=== PATIENT | female | born 1975 | race Caucasian/White ===

== ENCOUNTER → 2018-05-01 07:45 | Outpatient (CLI) | payer OTHER, SELFPAY ==
[2018-05-01 08:19] LABS: Add Manual Diff / Slide Review NO; Basophils Absolute Auto 0 /uL (0-100); Basophils Percent Auto 0.6 % (0-2); Eosinophils Absolute Auto 100 /uL (0-450); Eosinophils Percent Auto 1.6 % (2-4); Hematocrit 39.3 % (36-46); Hemoglobin 13.1 g/dL (12.0-16.0); Lymphocytes Absolute Auto 1900 /uL (1100-4500); Lymphocytes Percent Auto 26.2 % (25-40); Mean Corpuscular HGB Conc 33.4 % (30-36); Mean Corpuscular Hemoglobin 30.5 PG (26-34); Mean Corpuscular Volume 91.5 fL (80-100); Monocytes Absolute Auto 500 /uL (0-900); Monocytes Percent Auto 7.5 % (3-14); Neutrophils Absolute Auto 4600 /uL (1500-7000); Neutrophils Percent Auto 64.1 % (50-75); Platelet Count 231 X10^3/uL (150-400); Red Cell Distribution Width 13.2 % (11.6-14.8); White Blood Cell Count 7.2 X10^3/uL (4.5-11.0)
[2018-05-01 08:56] LABS: Cholesterol 148 mg/dL (140-199); Glucose 94 mg/dL (70-100); HDL Cholesterol 65 mg/dL (40-60); LDL Cholesterol Calculated 59 mg/dL (<100); Triglycerides 121 mg/dL (35-150)
[2018-05-01 09:22] LABS: Thyroid Stimulating Hormone 2.44 uIU/mL (0.47-4.68)
== END ==
PROVIDERS: PCP Family Medicine; Visit Provider Family Medicine
DX: Z13.0 Encounter for screening for diseases of the blood and blood-forming organs and certain disorders involving the immune mechanism (principal); Z13.1 Encounter for screening for diabetes mellitus; Z13.220 Encounter for screening for lipoid disorders
CPT/HCPCS: 36415; 80061; 82947; 84443; 85025

== ENCOUNTER → 2019-02-11 16:54 | Outpatient (CLI) | payer OTHER, SELFPAY ==
--- NOTE | 2019-02-11 16:55 | DI.MG.S_ITS ---
BILATERAL DIGITAL SCREENING MAMMOGRAM 3D/2D WITH CAD: 02/11/2019 CLINICAL: Routine screening. Baseline exam. Family history of breast cancer. No prior exams were available for comparison. The tissue of both breasts is extremely dense, which lowers the sensitivity of mammography. Current study was also evaluated with a Computer Aided Detection (CAD) system. No significant masses, calcifications, or other findings are seen in either breast. IMPRESSION: NEGATIVE There is no mammographic evidence of malignancy. A 1 year screening mammogram is recommended. This exam was interpreted at Station ID: [id number]. NOTE: For mammograms, a report in lay terms will be sent to the patient. Approximately 15% of breast malignancies will not be visualized mammographically. In the management of a palpable breast mass, a negative mammogram must not discourage biopsy of a clinically suspicious lesion. Electronically Signed By: Vipul gonzales/mark:02/12/2019 07:45:51 letter sent: Normal Exam ACR BI-RADS Category 1: Negative [id number]
== END ==
PROVIDERS: PCP Family Medicine; Visit Provider Family Medicine
DX: Z12.31 Encounter for screening mammogram for malignant neoplasm of breast (principal); Z80.3 Family history of malignant neoplasm of breast
CPT/HCPCS: 77063; 77067

== ENCOUNTER → 2020-09-07 07:13 | Outpatient (CLI) | payer OTHER, SELFPAY ==
--- NOTE | 2020-09-07 07:14 | DI.US.S_ITS ---
PROCEDURE: US PELVIC COMPLETE INDICATIONS: RIGHT ADNEXAL CYST ON MRI TECHNIQUE: Real-time scanning was performed of the pelvic organs, with image documentation. Additional endovaginal scanning was necessary due to incomplete visualization of the adnexal and endometrial structures by transabdominal scanning. COMPARISON: [facility], MR, MR HIP RIGHT WITHOUT CONTRAST, 05/20/2020, 7:31. FINDINGS: Uterus: Uterus is normal in size at 6.5 x 3.0 x 4.3 cm. The endometrium measures 1.3 mm in combined thickness. Ovaries: The right ovary measures 6.8 x 4.7 x 5.3 cm and contains a large simple cyst measuring 6.4 x 4.5 x 5.2 cm. The left ovary measures 2.6 x 2.6 x 2.7 cm and contains 2 small simple cysts, the larger of which measures 1.5 x 1.6 x 1.5 cm. Other: No pathologic free abdominal or pelvic fluid. IMPRESSION: 1. Simple right ovarian cyst measures up to 6.4 cm in maximum dimension. Given the size of the cyst, annual sonographic follow-up is recommended based on U guidelines. 2. Two simple left ovarian cysts are also seen measuring up to 1.6 cm in diameter. Attention at these cysts is also recommended on follow-up exams. Dictated by: Greg Abrams M.D. on 09/08/2020 at 16:22 Approved by: Greg Abrams M.D. on 09/08/2020 at 16:27
== END ==
PROVIDERS: PCP Family Medicine; Referring Provider Family Medicine; Visit Provider Family Medicine
DX: N83.291 Other ovarian cyst, right side (principal); N83.292 Other ovarian cyst, left side
CPT/HCPCS: 76830; 76856

== ENCOUNTER 2020-11-18 12:21 | Emergency (ER) | payer OTHER, SELFPAY ==
[2020-11-18 12:42] VITALS: BP 147/71; PULSE 94; RESP 15; TEMP 36.9; O2SAT 98; BMI 23.6
--- NOTE | 2020-11-18 12:48 | DI.RAD.S_ITS ---
PROCEDURE: XR HIP W PEL IF DONE RT 2V INDICATIONS: right hip pain TECHNIQUE: AP pelvis with lateral view of the right hip. COMPARISON: [facility], MR, MR HIP RIGHT WITHOUT CONTRAST, 05/20/2020, 7:31. [facility] [place], CR, XR PELVIS WITH LATERAL HIP RIGHT, 02/02/2020, 16:08. FINDINGS: Bones: No acute fractures or dislocations. Pelvic ring appears intact. No suspicious bony lesions. Soft tissues: The visualized bowel gas pattern is normal. No suspicious soft tissue calcifications. IMPRESSION: No acute osseous abnormality. If clinical suspicion and/or symptoms persist, additional imaging with repeat plain films, or advanced imaging (e.g. CT, MRI) may be helpful for further assessment. Dictated by: Greg Abrams M.D. on 11/18/2020 at 13:07 Approved by: Greg Abrams M.D. on 11/18/2020 at 13:09
--- NOTE | 2020-11-18 15:01 | ED.EXTPRO ---
HPI - Extremity Problem <Josue Vegas PA-C - Last Filed: 11/18/20 18:44> General Chief complaint: Extremity Problem,Nontraumatic Stated complaint: Pain, Right Side, Hip into Leg, Hx Bursitis Time Seen by Provider: 11/18/20 13:42 Source: patient Mode of arrival: Ambulatory Limitations: no limitations History of Present Illness HPI Narrative: Bekah presents today with chief complaint of right sided low back pain that is radiating down her right leg. She reports that she was moving some firewood on Sunday and noticed a bit of tightness in her right lower back on Sunday which has progressed throughout this week. She has known history of bursitis in her right hip. She reports that she has been chronic pain for nearly a year but this seems to be a bit worse than normal. She has an appointment with her PCP tomorrow morning at 1000. She denies any significant changes in bowel or bladder habits, difficulty walking, abdominal pain, fever, headache, or any other acute concerns or complaints at this time. Related Data Previous Rx's Medication Instructions Recorded hydrocodone 5 mg-acetaminophen 325 1 tab PO TID PRN #30 tab 12/30/19 mg tablet meloxicam 15 mg tablet 15 mg PO DAILY #30 tab 12/30/19 gabapentin 300 mg capsule See Rx Instructions PO TID #180 cap 05/11/20 norethindrone 1 mg-ethinyl See Rx Instructions .ROUTE 10/25/20 estradiol 20 mcg (24)-iron 75 mg .COMPLEX #84 tab (4) tablet (Aurovela 24 Fe) methocarbamol 500 mg tablet 500 mg PO BID #10 tab 11/18/20 ketorolac 10 mg tablet 10 mg PO Q6H PRN #14 tab 11/19/20 methylprednisolone 4 mg tablets in See Rx Instructions .ROUTE 11/19/20 a dose pack (Medrol (Kenny)) .COMPLEX #21 ea Allergies Allergy/AdvReac Type Severity Reaction Status Date / Time No Known Drug Allergies Allergy Verified 11/18/20 12:44 Review of Systems <Josue Vegas PA-C - Last Filed: 11/18/20 18:44> Review of Systems Narrative: As per HPI Patient History <Josue Vegas PA-C - Last Filed: 11/18/20 18:44> Surgical History Status post appendectomy Family History Mother Diabetes mellitus Heart disease Social History Smoking Status: Never smoker Smoking Status: Never smoker alcohol intake frequency: a few times a month Substance Use Type: does not use Exam <Josue Vegas PA-C - Last Filed: 11/18/20 18:44> Narrative Exam Narrative: Exam Narrative: Const General: cooperative, healthy appearing, comfortable, no acute distress, well developed and well groomed Nutritional Appearance: average body habitus Orientation: alert and oriented x3 HENMT Head: normal to inspection and atraumatic Ears: hearing grossly normal bilaterally Nose: external nose normal and nares normal Face and sinus: normal facial exam Neck Neck: normal visual inspection and supple Resp Effort & Inspection: normal respiratory effort, able to speak in complete sentences, no audible wheezes, not labored, no nasal flaring and no respiratory distress Neuro General: alert, oriented x3, gait normal, tone normal and moves all extremities Cognition: normal cognition Speech: speech normal Gait: normal gait Musculoskeletal No midline spinal tenderness noted. Full range of motion of her leg. Positive straight leg raise on the right. no overlying skin changes. Soft tissue tenderness in right lower lumbar area. No SI joint tenderness. Psych Appearance: grossly normal and well kempt Mental Status: mental status grossly normal Speech and Movement: speech and movement normal Mood: congruent mood Affect: normal affect Initial Vital Signs Initial Vital Signs: Vital Signs Temperature 98.5 F 11/18/20 12:42 Pulse Rate 94 H 11/18/20 12:42 Respiratory Rate 15 11/18/20 12:42 Blood Pressure 147/71 H 11/18/20 12:42 Pulse Oximetry 98 11/18/20 12:42 <Pura Mosley DO - Last Filed: 11/19/20 09:13> Initial Vital Signs Initial Vital Signs: Vital Signs Temperature 98.5 F 11/18/20 12:42 Pulse Rate 94 H 11/18/20 12:42 Respiratory Rate 15 11/18/20 12:42 Blood Pressure 147/71 H 11/18/20 12:42 Pulse Oximetry 98 11/18/20 12:42 Course <Josue Vegas PA-C - Last Filed: 11/18/20 18:44> Orders Ordered: Discontinued Medications Ketorolac Tromethamine (Ketorolac 30 Mg/Ml Vial) 30 mg IM NOW ONE Stop: 11/18/20 14:56 Last Admin: 11/18/20 15:06 Dose: 30 mg Documented by: WILLIE Vital Signs Vital signs: Vital Signs - 8 hr 11/18/20 12:42 Temperature 98.5 F Pulse Rate 94 H Respiratory Rate 15 Blood Pressure 147/71 H Pulse Oximetry 98 <Pura Mosley DO - Last Filed: 11/19/20 09:13> Orders Ordered: Discontinued Medications Ketorolac Tromethamine (Ketorolac 30 Mg/Ml Vial) 30 mg IM NOW ONE Stop: 11/18/20 14:56 Last Admin: 11/18/20 15:06 Dose: 30 mg Documented by: WILLIE Vital Signs Vital signs: Vital Signs - 8 hr 11/18/20 12:42 Temperature 98.5 F Pulse Rate 94 H Respiratory Rate 15 Blood Pressure 147/71 H Pulse Oximetry 98 MDM - Extremity (Nontraumatic) <Josue Vegas PA-C - Last Filed: 11/18/20 18:44> MDM Narrative Medical decision making narrative: Patient is well-appearing at this time. I suspect that her symptoms are due to a muscle strain which is compressing on her sciatic nerve. Recommend anti-inflammatories, muscle relaxers, stretching, warm compresses to help with symptoms. If symptoms continue, she could benefit from a physical therapy evaluation. I will defer this to her PCP. ER return precautions were extensively discussed. Patient verbalizes understanding and agrees to plan and has no further concerns at this time. Thank you A [id number] system was used with the dictation of this note. Please disregard any spelling or grammatical errors. Discharge Plan Departure Patient Disposition: Home Clinical Impression: Acute right-sided low back pain with sciatica Qualifiers: Sciatica laterality: sciatica of right side Qualified Code(s): M54.41 - Lumbago with sciatica, right side Instructions: DI for Back Pain With Sciatica Activity Restrictions/Additional Instructions: It was nice to me this afternoon. Please stretch your low back and hip to help symptoms. Recommend applying warm compresses to loosen the muscles. Use the muscle relaxer as needed to help with pain as discussed. Please do not operate motor vehicle or any other machinery while on this medication. Return precautions include fever, changes in bowel or bladder habits, or any other new or worsening symptoms. Thank you Josue Vegas PA-C Prescriptions: New methocarbamol 500 mg tablet 500 mg PO BID Qty: 10 RF: 0 No Action hydrocodone-acetaminophen 5-325 mg tablet 1 tab PO TID PRN (Reason: pain) Qty: 30 RF: 0 meloxicam 15 mg tablet 15 mg PO DAILY Qty: 30 RF: 2 gabapentin 300 mg capsule See Rx Instructions PO TID Qty: 180 RF: 3 norethindrone-e.estradiol-iron [Aurovela 24 Fe] 1 mg-20 mcg (24)/75 mg (4) tablet See Rx Instructions .ROUTE .COMPLEX Qty: 84 RF: 0 methylprednisolone [Medrol (Kenny)] 4 mg tablets,dose pack See Rx Instructions .ROUTE .COMPLEX Qty: 21 RF: 0 ketorolac 10 mg tablet 10 mg PO Q6H PRN (Reason: pain) Qty: 14 RF: 0 Referrals: Tomasa Frazier MD [Primary Care Provider] - <Pura Mosley DO - Last Filed: 11/19/20 09:13> Cosign ED Attending [employer]ain[employer] Attestation: I was immediately available in the department for consultation. Documentation has been reviewed.
[2020-11-18] MEDS: KETOROLAC 30 MG/ML VIAL IM (15:06)
== END 2020-11-18 15:30 | disposition home or self-care (01) ==
PROVIDERS: Emergency Provider Physician Assistant; PCP Family Medicine
DX: M54.41 Lumbago with sciatica, right side (principal)
CPT/HCPCS: 73502; J1885

== ENCOUNTER 2020-11-18 23:12 | Emergency (ER) | payer OTHER, SELFPAY ==
--- NOTE | 2020-11-18 23:14 | ED_ITS ---
HPI - Extremity Problem General Chief complaint: Back Pain/Injury Stated complaint: heavy pain in right hip/leg Time Seen by Provider: 11/18/20 23:13 History of Present Illness HPI Narrative: 44-year-old female nonsmoker with history of low back problems, previously requiring surgery returns for the 2nd time today. She developed significant low back pain with radiation down her right leg after lifting logs a few days ago. Her pain is severe and in the lumbar region with radiation down her right leg and some tingling is present. She denies any weakness or footdrop. She has no direct trauma, fever or use of blood thinners. She denies any loss of control of bowel or bladder. Her pain is worse when she moves and improves with rest. She was seen and evaluated earlier, thought to have radicular symptoms and was placed on methocarbamol which has not seemed to help much. She has had sciatica and lumbar problems in the past which required neuro surgical intervention up in [place]. Related Data Previous Rx's Medication Instructions Recorded hydrocodone 5 mg-acetaminophen 325 1 tab PO TID PRN #30 tab 12/30/19 mg tablet meloxicam 15 mg tablet 15 mg PO DAILY #30 tab 12/30/19 gabapentin 300 mg capsule See Rx Instructions PO TID #180 cap 05/11/20 norethindrone 1 mg-ethinyl See Rx Instructions .ROUTE 10/25/20 estradiol 20 mcg (24)-iron 75 mg .COMPLEX #84 tab (4) tablet (Aurovela 24 Fe) methocarbamol 500 mg tablet 500 mg PO BID #10 tab 11/18/20 ketorolac 10 mg tablet 10 mg PO Q6H PRN #14 tab 11/19/20 methylprednisolone 4 mg tablets in See Rx Instructions .ROUTE 11/19/20 a dose pack (Medrol (Kenny)) .COMPLEX #21 ea Allergies Allergy/AdvReac Type Severity Reaction Status Date / Time No Known Drug Allergies Allergy Verified 11/18/20 12:44 Review of Systems Review of Systems Narrative: GENERAL: Denies chills, fatigue, malaise, fever, sweats. HEENT: Denies sinus pain, ear pain, sore throat, difficulty swallowing, dizziness. RESPIRATORY: Denies dyspnea, cough, wheezing, hemoptysis, sputum. CARDIOVASCULAR: Denies chest pain, palpitations, orthopnea, edema, GASTROINTESTINAL: Denies nausea, vomiting, abdominal pain, diarrhea, constipation, melena. : Denies dysuria, frequency, incontinence, hematuria, urinary retention. MUSCULOSKELETAL: See HPI SKIN: Denies rash, skin lesions, or other NEUROLOGIC: See HPI. PSYCHIATRIC: No concerning psychosocial issues. 12 point review of systems is negative except for those stated above Patient History Surgical History Status post appendectomy Family History Mother Diabetes mellitus Heart disease Social History Smoking Status: Never smoker Smoking Status: Never smoker alcohol intake frequency: a few times a month Substance Use Type: does not use Exam Narrative Exam Narrative: GENERAL: [44] year old patient appears stated age. Well- developed patient, in obvious pain, bent over on the cart, tearful HEAD: Atraumatic. Normocephalic. EYES: Pupils equal round and reactive. Extraocular motions intact. No scleral icterus. No injection or drainage. ENT: Nose without bleeding, purulent drainage. Throat without erythema, tonsillar hypertrophy or exudate. Airway patent. NECK: Trachea midline. Non tender CARDIOVASCULAR: Regular rate and rhythm without murmurs, gallops, or rubs. RESPIRATORY: Clear to auscultation. Breath sounds equal bilaterally. No wheezes, rales, or rhonchi. GASTROINTESTINAL: Abdomen soft, non-tender, nondistended. EXTREMITIES: No edema or joint tenderness. 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 Patient exam notes decreased range of motion and muscle spasm, but no CVA tenderness, or vertebral point tenderness. There are no symptoms of cauda equina such as saddle anesthesia, and decreased reflexes, decreased sensation or strength. NEURO: AOx3. SKIN: No rash or erythema of visible areas Initial Vital Signs Initial Vital Signs: Vital Signs Temperature 97.5 F L 11/18/20 23:25 Pulse Rate 65 11/18/20 23:25 Respiratory Rate 22 11/18/20 23:25 Blood Pressure 137/67 11/18/20 23:25 Pulse Oximetry 100 11/18/20 23:25 Course Orders Ordered: Discontinued Medications Gabapentin (Gabapentin 300 Mg Capsule) 300 mg PO NOW ONE Stop: 11/18/20 23:34 Last Admin: 11/18/20 23:56 Dose: 300 mg Documented by: EMILIANO Hydromorphone HCl (Hydromorphone 1 Mg Inj) 1 mg IV NOW ONE Stop: 11/18/20 23:31 Last Admin: 11/18/20 23:56 Dose: 1 mg Documented by: EMILIANO Dexamethasone 20 mg/ Sodium (Chloride) 52 mls @ 208 mls/hr IV NOW ONE Stop: 11/18/20 23:31 Last Admin: 11/18/20 23:56 Dose: 208 mls/hr Documented by: EMILIANO Ketorolac Tromethamine (Ketorolac 30 Mg/Ml Vial) 15 mg IV NOW ONE Stop: 11/18/20 23:31 Last Admin: 11/18/20 23:55 Dose: 15 mg Documented by: EMILIANO Reevaluation(s) Reevaluation #1: Significant improvement after the above-stated therapies, pain down to a 4 of 10 Vital Signs Vital signs: Vital Signs - 8 hr 11/18/20 23:25 11/19/20 00:42 Temperature 97.5 F L Pulse Rate 65 58 L Respiratory Rate 22 15 Blood Pressure 137/67 120/62 Pulse Oximetry 100 99 MDM - Extremity (Nontraumatic) MDM Narrative Medical decision making narrative: Patient with severe, worsening right lower back pain with radiation down the right leg including some tingling but absence of any significant red flags suggesting an neuro surgical emergencies present. Multiple etiologies of back pain considered including; Epidural abscess, cauda equina, mass occupying lesion, and other considered but patient's history, physical exam and response to medications would suggest this is unlikely. Patient given return precautions, questions answered to her apparent satisfacti on Discharge Plan Departure Patient Disposition: Home Clinical Impression: Acute right lumbar radiculopathy Instructions: DI for Lumbar Radiculopathy Activity Restrictions/Additional Instructions: *You have been diagnosed with [acute right-sided lumbar pain with radiculopathy. Your physical exam and story are very reassuring and that there is no suggestion of spinal cord involvement or other neuro surgical emergency. *What to do: *Please continue to take your regular medications as directed including the percocet and gabapentin which you have at home. [x ] New medication prescriptions sent to your pharmacy: [[facility] ] [ ] New medication written as a paper prescription [ ] No new medications given *Please follow up with your primary care provider later today as planned *Return to Emergency Department if you should have any new, worsening or concerning symptoms, such as [fever greater than 101 F, shaking chills, worsening pain, persistent vomiting, weakness of your leg, loss of control of bowel or bladder, or other bothersome symptoms] Prescriptions: New methylprednisolone [Medrol (Kenny)] 4 mg tablets,dose pack See Rx Instructions .ROUTE .COMPLEX Qty: 21 RF: 0 ketorolac 10 mg tablet 10 mg PO Q6H PRN (Reason: pain) Qty: 14 RF: 0 No Action hydrocodone-acetaminophen 5-325 mg tablet 1 tab PO TID PRN (Reason: pain) Qty: 30 RF: 0 meloxicam 15 mg tablet 15 mg PO DAILY Qty: 30 RF: 2 gabapentin 300 mg capsule See Rx Instructions PO TID Qty: 180 RF: 3 norethindrone-e.estradiol-iron [Aurovela 24 Fe] 1 mg-20 mcg (24)/75 mg (4) tablet See Rx Instructions .ROUTE .COMPLEX Qty: 84 RF: 0 methocarbamol 500 mg tablet 500 mg PO BID Qty: 10 RF: 0 Referrals: Tomasa Frazier MD [Primary Care Provider] -
[2020-11-18 23:25] VITALS: BP 137/67; PULSE 65; RESP 22; TEMP 36.4; O2SAT 100; BMI 23.8
[2020-11-18] MEDS: KETOROLAC 30 MG/ML VIAL 15 MG IV (23:55)
[2020-11-18] MEDS: dexAMETHasone 20 MG in SODIUM CHLORIDE 0.9% 50 ML 208 ML IV (23:56)
[2020-11-18] MEDS: HYDROMORPHONE 1 MG INJ IV (23:56)
[2020-11-18] MEDS: GABAPENTIN 300 MG CAPSULE PO (23:56)
[2020-11-19 00:42] VITALS: BP 120/62; PULSE 58; RESP 15; O2SAT 99
== END 2020-11-19 00:43 | disposition home or self-care (01) ==
PROVIDERS: Emergency Provider Emergency Medicine; PCP Family Medicine
DX: M54.16 Radiculopathy, lumbar region (principal); M54.41 Lumbago with sciatica, right side
CPT/HCPCS: 73502; 96365; 96372; 96375; 99283; 99284; J1100; J1170; J1885

== ENCOUNTER → 2020-12-06 17:20 | Outpatient (CLI) | payer OTHER, SELFPAY ==
--- NOTE | 2020-12-06 17:24 | DI.MRI.S_ITS ---
PROCEDURE: MR LUMBAR SPINE WO CON INDICATIONS: lower back pain with radiculoathy TECHNIQUE: Noncontrast sagittal T1 spin echo and T2 fast echo, sagittal STIR, axial T1 and T2 fast spin echo through the lumbar spine. In cases with scoliosis, additional coronal T2 fast spin echo may be performed. COMPARISON: [facility], MR, MR LUMBAR SPINE WITHOUT CONTRAST, 05/20/2020, 7:31. [facility] [place], CR, XR LUMBAR SPINE 2 OR 3 VIEWS, 02/02/2020, 16:05. FINDINGS: Image quality: Excellent. Alignment and Curvature: 5 lumbar type vertebral bodies are present by plain film. Loss of normal lumbar lordosis is present. Mild grade 1 retrolisthesis of L3 on L4, L4 on L5, and L5 on S1. Bone Marrow: Marrow is of normal overall signal. No acute vertebral body compression fractures. Right L5-S1 hemilaminotomy. Mild reactive signal within the endplates adjacent to the L4-L5 and L5-S1 intervertebral discs. Spinal Cord: Conus medullaris terminates at the lower L1 level. Visualized cord demonstrates normal signal and size. Paraspinous Soft Tissues: No paravertebral masses. T12-L1: Normal appearance. L1-L2: Normal appearance. L2-L3: Mild disc height loss and desiccation. Mild diffuse disc bulge. No significant canal, or foraminal stenosis. No significant change. L3-L4: Mild facet hypertrophy. No significant canal, or foraminal stenosis. No significant change. L4-L5: Mild disc desiccation and diffuse disc bulge. Mild bilateral facet hypertrophy. Mild canal stenosis. No foraminal stenosis. No significant change. L5-S1: Moderate disc height loss and desiccation. Mild diffuse disc bulge with superimposed central/right paracentral protrusion. Ill-defined low T2 signal intensity within the right lateral recess. Compression and posterior deviation of the right S1 nerve root, slightly decreased. Mild canal stenosis. Moderate right and [id number] left foraminal stenosis is unchanged. IMPRESSION: 1. Postsurgical sequelae. Decreased compression and posterior deviation of the right S1 nerve root within the lateral recess at L5-S1. 2. Low T2 signal intensity surrounding the right S1 nerve root within the lateral recess, possibly indicating scarring/granulation tissue. This could be further assessed with postcontrast enhanced MRI of the lumbar spine, if clinically indicated. Dictated by: Carley Lerner M.D. on 12/07/2020 at 10:16 Approved by: Carley Lerner M.D. on 12/07/2020 at 10:20
== END ==
PROVIDERS: PCP Family Medicine; Referring Provider Family Medicine; Visit Provider Family Medicine
DX: M54.50 Low back pain, unspecified (principal); M51.17 Intervertebral disc disorders with radiculopathy, lumbosacral region; M51.16 Intervertebral disc disorders with radiculopathy, lumbar region; M48.07 Spinal stenosis, lumbosacral region; M48.061 Spinal stenosis, lumbar region without neurogenic claudication; Z98.890 Other specified postprocedural states
CPT/HCPCS: 72148

== ENCOUNTER 2021-04-06 20:05 | Emergency (ER) | payer OTHER, SELFPAY ==
[2021-04-06 20:08] VITALS: BP 147/77; PULSE 69; RESP 22; TEMP 37; O2SAT 98
--- NOTE | 2021-04-06 20:16 | DI.CT.S_ITS ---
PROCEDURE: CT HEAD/BRAIN WO CON INDICATIONS: vision change TECHNIQUE: Noncontrast 4.5 mm thick angled axial sections acquired from the foramen magnum to the vertex, with coronal and sagittal reformats. For radiation dose reduction, the following was used: automated exposure control, adjustment of mA and/or kV according to patient size. COMPARISON: None. FINDINGS: Image quality: Excellent. CSF spaces: Basal cisterns are patent. No extra-axial fluid collections. Ventricles are normal in size and shape. Brain: No midline shift. No intracranial masses or hemorrhage. Leblanc-white matter interface is normal. Skull and face: Calvarium and visualized facial bones are intact, without suspicious lesions. Sinuses: Visualized sinuses and mastoids are clear. IMPRESSION: 1. No acute intracranial process. Dictated by: Nivia Lopez M.D. on 04/06/2021 at 20:46 Approved by: Nivia Lopez M.D. on 04/06/2021 at 20:46
--- NOTE | 2021-04-06 20:17 | ED_ITS ---
HPI - Neuro Symptoms/Deficit General Chief Complaint: Neuro Symptoms/Deficit Stated Complaint: sudden visual changes Time Seen by Provider: 04/06/21 20:15 Source: patient Mode of arrival: Ambulatory History of Present Illness HPI Narrative: 45F non-smoker with a history of ovarian cyst and low back pain presents with her and the relatively sudden onset of visual disturbances that started in her right eye and include floaters and flashers and then apparently moved to her left eye. She describes them as star shaped and flashing lights that are largely in the left upper field of her vision. She states that when she moves her eyes the floaters and flashers move with her field of view. She denies any trauma or injury. She has no pain, fever or chills. She denies any history of the same. She does not wear glasses or contacts. She denies dizziness, weakness or lightheadedness. She has no difficulty with ambulation and denies any extremity weakness. She denies blurred vision or any visual field cuts. Related Data Previous Rx's Medication Instructions Recorded hydrocodone 5 mg-acetaminophen 325 1 tab PO TID PRN #30 tab 12/30/19 mg tablet gabapentin 300 mg capsule See Rx Instructions PO TID #180 cap 05/11/20 methocarbamol 500 mg tablet 500 mg PO BID #10 tab 11/18/20 ketorolac 10 mg tablet 10 mg PO Q6H PRN #14 tab 11/19/20 methylprednisolone 4 mg tablets in See Rx Instructions .ROUTE 11/19/20 a dose pack (Medrol (Kenny)) .COMPLEX #21 ea cyclobenzaprine 5 mg tablet 5 mg PO TID PRN #90 tab 11/29/20 norethindrone 1 mg-ethinyl See Rx Instructions .ROUTE 01/10/21 estradiol 20 mcg (24)-iron 75 mg .COMPLEX #84 tab (4) tablet (Aurovela 24 Fe) meloxicam 15 mg tablet 15 mg PO DAILY #30 tab 03/03/21 Allergies Allergy/AdvReac Type Severity Reaction Status Date / Time No Known Drug Allergies Allergy Verified 11/18/20 12:44 Review of Systems Review of Systems Narrative: GENERAL: Denies chills, fatigue, malaise, fever, sweats. HEENT: Denies sinus pain, ear pain, sore throat, difficulty swallowing, dizziness. RESPIRATORY: Denies dyspnea, cough, wheezing, hemoptysis, sputum. CARDIOVASCULAR: Denies chest pain, palpitations, orthopnea, edema, GASTROINTESTINAL: Denies nausea, vomiting, abdominal pain, diarrhea, constipation, melena. : Denies dysuria, frequency, incontinence, hematuria, urinary retention. MUSCULOSKELETAL: denies weakness, joint pain, or bony pain SKIN: Denies rash, skin lesions, or other NEUROLOGIC: See HPI PSYCHIATRIC: No concerning psychosocial issues. 12 point review of systems is negative except for those stated above Patient History Surgical History Status post appendectomy Family History Mother Diabetes mellitus Heart disease Breast cancer Social History Smoking Status: Never smoker Smoking Status: Never smoker alcohol intake frequency: a few times a month Substance Use Type: does not use Exam Narrative Exam Narrative: GENERAL: 45 year old patient appears stated age. Well-developed patient, in mild distress. HEAD: Atraumatic. Normocephalic. EYES: Pupils equal round and reactive. Extraocular motions intact. No scleral icterus. No injection or drainage. Patient with no visual change in R eye. Accurate vision in all 4 quadrants of L eye, though she does say maybe it's a bit blurry. No obvious fundoscopic abnormalities. Bedside US notes no obvious retinal detachment, optic nerve sheath within normal limits ENT: Nose without bleeding, purulent drainage. Throat without erythema, tonsillar hypertrophy or exudate. Airway patent. NECK: Trachea midline. Non tender CARDIOVASCULAR: Regular rate and rhythm without murmurs, gallops, or rubs. RESPIRATORY: Clear to auscultation. Breath sounds equal bilaterally. No wheezes, rales, or rhonchi. GASTROINTESTINAL: Abdomen soft, non-tender, nondistended. EXTREMITIES: No edema or joint tenderness. BACK: Nontender without deformity or crepitance. No flank tenderness. NEURO: AOx3. SKIN: No rash or erythema of visible areas Initial Vital Signs Initial Vital Signs: Vital Signs Temperature 98.6 F 04/06/21 20:08 Pulse Rate 69 04/06/21 20:08 Respiratory Rate 22 04/06/21 20:08 Blood Pressure 147/77 H 04/06/21 20:08 Pulse Oximetry 98 04/06/21 20:08 Scores NIH Stroke Scale Level of Conciousness: Alert, keenly responsive Ask month/age: Answers both questions correctly. Open/close eyes, close hand: Performs both tasks correctly Best gaze horizontal: Normal Visual clements: No visual loss Facial palsy: Normal symetrical movement Left arm drift: No drift for full 10 sec Right arm drift: No drift for full 10 sec Left leg drift: No drift for full 5 sec Right leg drift: No drift for full 5 sec Limb ataxia: Absent Sensory on face/arms/legs: Normal, no sensory loss Best language: No aphasia, normal Dysarthria: Normal Extinction or inattention: No abnormality Total NIH Stroke scale score: 0 Course Orders Ordered: ED Orders 04/06/21 20:16 CT head/brain wo con Stat Vital Signs Vital signs: Vital Signs - 8 hr 04/06/21 20:08 Temperature 98.6 F Pulse Rate 69 Respiratory Rate 22 Blood Pressure 147/77 H Pulse Oximetry 98 MDM - Neuro Symptoms/Deficit Imaging Data CT scan - head: Radiologist's Impression: [place] [address] CT Scan Report Signed Patient: Bekah Land MR#: [id number] : 1975 Acct:[id number] Age/Sex: 45 / F Date of Service: 04/06/21 Loc: ED Accession Number: [id number] ?? Procedure: CT head/brain wo con Ordering Provider: Ced Espinoza D.O. PROCEDURE:? CT HEAD/BRAIN WO CON ? INDICATIONS:? vision change ? TECHNIQUE:? Noncontrast 4.5 mm thick angled axial sections acquired from the foramen magnum to the vertex, with coronal and sagittal reformats.? For radiation dose reduction, the following was used:? automated exposure control, adjustment of mA and/or kV according to patient size.? ? COMPARISON:? None. ? FINDINGS:? Image quality:? Excellent.? ? CSF spaces:? Basal cisterns are patent.? No extra-axial fluid collections.? Ventricles are normal in size and shape.? ? Brain:? No midline shift.? No intracranial masses or hemorrhage.? Leblanc-white matter interface is normal.? ? Skull and face:? Calvarium and visualized facial bones are intact, without suspicious lesions.? ? Sinuses:? Visualized sinuses and mastoids are clear.? ? IMPRESSION:? ? 1. No acute intracranial process. ? ? Dictated by: Nivia Lopez M.D. on 04/06/2021 at 20:46 ? ? Approved by: Nivia Lopez M.D. on 04/06/2021 at 20:46? MDM Narrative Medical decision making narrative: Patient with relatively sudden onset of vision change with significant improvement by times of discharge. Stroke considered vs. ocular problem such as retinal issue vs. ocular migraine. I had lengthy discussion with the patient at the bedside, and her about her reassuring neurologic exam and CT scan, as well as improving symptoms. We discussed that even if this were stroke I would not advocate for the use of tPA given my low suspicion of stroke, improvement symptoms, and risk versus benefit. She and agreed. Retinal detachment considered but she has no visual field cut, symptoms are improving and no obvious change on ultrasound. Patient given extensive return precautions. Importance of close follow up is stressed and she understands as evidenced by her ability to recite her instructions back. Questions have been answered to her apparent satisfaction Discharge Plan Departure Patient Disposition: Home Clinical Impression: Alteration in vision Instructions: DI for Visual Field Disturbances Activity Restrictions/Additional Instructions: *You have been diagnosed with [left eye visual disturbance. Your history and physical exam are very reassuring. Your head CT is unremarkable, you have no other neurologic symptoms to suggest stroke. As we discussed the next step is to see our local eye doctor for a more in-depth exam *What to do: *Please continue to take your regular medications as directed. [ ] New medication prescriptions sent to your pharmacy: [ ] [ ] New medication written as a paper prescription [ x] No new medications given *Please follow up with Dr. Calzada or Dr. Parra at the ophthalmology clinic in the hospital. Please present to their office or Call for an appointment at 8:30 a.m. in the morning tomorrow. Let them know you were seen in the Emergency Department and that we ask that you be seen in follow up tomorrowWe will electronically transmit a record of today's note *Return to Emergency Department if you should have any new, worsening or concerning symptoms Prescriptions: No Action hydrocodone-acetaminophen 5-325 mg tablet 1 tab PO TID PRN (Reason: pain) Qty: 30 0RF gabapentin 300 mg capsule See Rx Instructions PO TID Qty: 180 3RF Rx Instructions: Take one to two capsules up to three times daily cyclobenzaprine 5 mg tablet 5 mg PO TID PRN (Reason: muscle spasm) Qty: 90 2RF norethindrone-e.estradiol-iron [Aurovela 24 Fe] 1 mg-20 mcg (24)/75 mg (4) tablet See Rx Instructions .ROUTE .COMPLEX Qty: 84 3RF Dose Instruction: TAKE 1 TABLET BY MOUTH EVERY DAY FOR CONTRACEPTION Rx Instructions: TAKE 1 TABLET BY MOUTH EVERY DAY FOR CONTRACEPTION meloxicam 15 mg tablet 15 mg PO DAILY Qty: 30 2RF methocarbamol 500 mg tablet 500 mg PO BID Qty: 10 0RF methylprednisolone [Medrol (Kenny)] 4 mg tablets,dose pack See Rx Instructions .ROUTE .COMPLEX Qty: 21 0RF Rx Instructions: orally per package directions ketorolac 10 mg tablet 10 mg PO Q6H PRN (Reason: pain) Qty: 14 0RF Referrals: Rajeev Calzada MD [Physician] - Tomasa Frazier MD [Primary Care Provider] -
== END 2021-04-06 21:46 | disposition home or self-care (01) ==
PROVIDERS: Emergency Provider Emergency Medicine; PCP Family Medicine
DX: H53.8 Other visual disturbances (principal)
CPT/HCPCS: 70450; 99283; 99284

== ENCOUNTER → 2022-10-08 16:31 | Outpatient (CLI) | payer OTHER, SELFPAY | PROVIDERS: PCP Family Medicine; Visit Provider Physician Assistant | DX: R10.9 Unspecified abdominal pain (principal) | CPT/HCPCS: 87077; 87086; 87186 ==

== ENCOUNTER → 2022-10-09 07:01 | Outpatient (CLI) | payer OTHER, SELFPAY ==
[2022-10-09 08:29] LABS: Hematocrit 38.9 % (36-46); Hemoglobin 13.1 g/dL (12.0-16.0); Mean Corpuscular HGB Conc 33.6 % (30-36); Mean Corpuscular Hemoglobin 31.4 PG (26-34); Mean Corpuscular Volume 93.5 fL (80-100); Platelet Count 194 X10^3/uL (150-400); Red Blood Cell Count 4.16 X10^6/uL (4.0-5.2); Red Cell Distribution Width 13.6 % (11.6-14.8)
[2022-10-09 08:38] LABS: BUN Creatinine Ratio 14.3 (6-22); Blood Urea Nitrogen 11 mg/dL (7-17); Calcium 9.2 mg/dL (8.4-10.2); Carbon Dioxide 21 mmol/L (22-32); Chloride 106 mmol/L (98-107); Estimated Glomerular Filt Rate > 60 mL/min (>60); Glucose 88 mg/dL (70-100); HEMOLYSIS < 15 (0-50); Sodium 137 mmol/L (137-145)
== END ==
PROVIDERS: PCP Family Medicine; Referring Provider Physician Assistant; Visit Provider Physician Assistant
DX: N39.0 Urinary tract infection, site not specified (principal)
CPT/HCPCS: 36415; 80048; 85027

== ENCOUNTER → 2022-10-25 16:23 | Outpatient (CLI) | payer OTHER, SELFPAY ==
--- NOTE | 2022-10-25 | DI.MG.S_ITS ---
BILATERAL DIGITAL SCREENING MAMMOGRAM 3D/2D WITH CAD: 10/25/2022 CLINICAL: Routine screening. Family history of breast cancer. Comparison is made to exam dated: 02/11/2019 mammogram - [facility]. Both breasts are extremely dense, which lowers the sensitivity of mammography (category d />75% glandular tissue). Current study was also evaluated with a Computer Aided Detection (CAD) system. No significant masses, calcifications, or other findings are seen in either breast. There has been no significant interval change. IMPRESSION: NEGATIVE There is no mammographic evidence of malignancy. A 1 year screening mammogram is recommended. Based on Tyrer-Cuzick model (a risk assessment model), the patient's lifetime risk is 24.2% and her 10 year risk is 4.7%. If a patient has an elevated risk, a more comprehensive evaluation should be considered and/or a referral to a genetic counselor. The [place] [employer], [place] [employer], and NCCN Guidelines advise the consideration of Breast MRI as an adjunct to screening mammography in patients whose Lifetime risk to develop breast cancer is 20% or higher. This exam was interpreted at Station ID: [id number]. NOTE: For mammograms, a report in lay terms will be sent to the patient. Approximately 15% of breast malignancies will not be visualized mammographically. In the management of a palpable breast mass, a negative mammogram must not discourage biopsy of a clinically suspicious lesion. Electronically Signed By: Milo barton/mark:10/26/2022 09:48:43 letter sent: Normal Exam ACR BI-RADS Category 1: Negative 3341F
== END ==
PROVIDERS: PCP Family Medicine; Referring Provider Family Medicine; Visit Provider Family Medicine
DX: Z12.31 Encounter for screening mammogram for malignant neoplasm of breast (principal); Z80.3 Family history of malignant neoplasm of breast
CPT/HCPCS: 77063; 77067

== ENCOUNTER → 2022-10-31 10:16 | Outpatient (CLI) | payer OTHER, SELFPAY | PROVIDERS: PCP Family Medicine; Visit Provider Physician Assistant | DX: N30.00 Acute cystitis without hematuria (principal) | CPT/HCPCS: 87086 ==

== ENCOUNTER → 2022-11-10 16:14 | Outpatient (CLI) | payer OTHER, SELFPAY ==
--- NOTE | 2022-11-10 16:16 | DI.US.S_ITS ---
PROCEDURE: US RENAL COMPLETE INDICATIONS: BILATERAL FLANK PAIN, HEMATURIA TECHNIQUE: Real-time scanning was performed of the kidneys and bladder, with image documentation. COMPARISON: None. FINDINGS: Kidneys: Kidneys are normal in size. Right kidney measures 8.6 cm long; left kidney measures 10.2 cm long. Right renal cortical thickness is 1.5 cm; left renal cortical thickness is 1.4 cm. Renal cortical echotexture is normal. No hydronephrosis or nephrolithiasis. No suspicious solid mass lesions. Bladder: Pre-void bladder volume is 273 mL. Post-void residual is 2.6 mL. Pre-void images demonstrate no intraluminal masses or stones. On pre-void images, neither ureteral jets are noted with color Doppler interrogation. (Of note, ureteral jets may not be detectable in up to 25% of cases due to insufficient differences in specific gravity between ureteral and bladder urine). Miscellaneous: No free pelvic fluid. Incidentally noted is a 2.2 x 2.3 x 2.6 cm hyperechoic mass in liver. IMPRESSION: 1. No renal stone or hydronephrosis. A cause for hematuria and flank pain are not identified. Recommend CT KUB or IVP for further evaluation. 2. Incidentally noted is a 2.2 x 2.3 x 2.6 cm hyperechoic nodule in liver, most likely a hepatic hemangioma in the patient without prior liver disease. Consider follow-up CT or MRI for further evaluation if clinically indicated. Dictated by: Devan Solano M.D. on 11/10/2022 at 17:00 Approved by: Devan Solano M.D. on 11/10/2022 at 17:02
--- NOTE | 2022-11-10 16:16 | DI.US.S_ITS ---
PROCEDURE: US PELVIC COMPLETE INDICATIONS: FOLLOW UP OVARIAN CYST TECHNIQUE: Real-time scanning was performed of the pelvic organs, with image documentation. Additional endovaginal scanning was necessary due to incomplete visualization of the adnexal and endometrial structures by transabdominal scanning. COMPARISON: [facility], US, US PELVIC COMPLETE, 09/07/2020, 7:26. FINDINGS: Uterus: Uterus is anteverted and normal in size at 7.4 x 3.1 by 4.1 cm. The myometrium is homogeneous. The endometrium is thin when measured in a similar manner compared to the prior exam and measures 1.9 mm combined thickness. Normal uterine vascularity. There are several nabothian cysts and a few calcifications in the cervix. Ovaries: The right ovary measures 5.9 x 6.9 x 5.5 cm, with a calculated ovarian volume of 115 cc. The left ovary measures 3.1 x 2.6 x 2.5 cm, with a calculated ovarian volume of 10.4 cc. There is a large unilocular thin-walled simple cyst arising from the right ovary measuring 5.0 x 6.3 x 5.0 cm. There are two cysts on the left ovary measuring 1.7 cm and 1.6 cm, each simple appearing. There is appropriate vascular flow in each ovary. No adnexal masses are seen. Other: No pathologic free abdominal or pelvic fluid. IMPRESSION: 1. Stable size of simple bilateral ovarian cysts measuring up to 6.3 cm on the right and 1.7 cm on the left. 2. Stable appearance of the uterus. We strive to produce accurate, complete, and clear reports of imaging services. To assist us in improving patient care, this report was composed using standard report templates and voice recognition software. Therefore, it may contain abnormal punctuation, insertions and/or omissions. Occasional wrong-word or sound-alike substitutions may occur. Though we review the report and make efforts to correct it, we do recommend that the report be read carefully in proper context to recognize any text inaccuracies. Dictated by: Diana Ko M.D. on 11/10/2022 at 17:27 Approved by: Diana Ko M.D. on 11/10/2022 at 17:35
== END ==
PROVIDERS: PCP Family Medicine; Referring Provider Physician Assistant; Visit Provider Physician Assistant
DX: N30.01 Acute cystitis with hematuria (principal); N83.291 Other ovarian cyst, right side; K76.9 Liver disease, unspecified; N83.292 Other ovarian cyst, left side
CPT/HCPCS: 76770; 76830; 93975

== ENCOUNTER → 2022-11-30 08:20 | Outpatient (CLI) | payer OTHER, SELFPAY ==
--- NOTE | 2022-11-30 08:20 | DI.MRI.S_ITS ---
BREAST MRI OF BOTH BREASTS: 11/30/2022 CLINICAL: Increased Risk of Breast Cancer. PROCEDURE: MR BREAST BI WO/W CON INDICATIONS: increased lifetime risk of Br CA TECHNIQUE: The patient was placed prone in a dedicated breast imaging coil. Precontrast axial STIR and 3D FLASH without fat saturation sequences were obtained. Both before and after bolus injection of contrast, sequential 1-minute axial 3D FLASH with fat saturation sequences for 3 time points, with subtraction images and maximum intensity projections (MIP's) generated. Delayed sagittal FLASH images with fat saturation were also obtained. Contrast: 20 cc ProHance IV contrast. Computer-aided detection, including computer algorithm analysis of MRI image data for lesion detection and characterization, pharmacokinetic analysis, with further physician review for interpretation, was performed. COMPARISON: [facility], SCREENING MAMMO BI, 10/25/2022, 16:36. [facility], SCREENING MAMMO BI, 02/11/2019, 17:23. FINDINGS: Image quality: Excellent. There is marked background parenchymal enhancement. Right breast: No mass or suspicious enhancement. A few T2 hyperintense cysts. Left breast: No mass or suspicious enhancement. A few T2 hyperintense cysts. Miscellaneous: No enlarged lymph nodes. IMPRESSION: BENIGN Marked background parenchymal enhancement limits sensitivity. No mass identified. A few benign cysts bilaterally. BIRADS 2. A 1 year screening mammogram is recommended. 10/26/2023 Continued screening breast MRI is recommended. COMMENT: The imaging literature indicates that a negative contrast breast MRI examination has a high sensitivity and a moderate specificity for detecting and excluding invasive carcinomas to a detection threshold of 3-5 mm; nonetheless, appropriate clinical and mammographic follow-up are recommended. MRI is not sensitive for detecting DCIS (ductal carcinoma in situ) and may not detect large invasive neoplasms that show only minimal enhancement such as mucinous carcinoma. If there are suspicious calcifications or clinically worrisome palpable masses, then biopsy should still be considered. Invasive neoplasms can be hidden by co-existent and benign enhancement caused by mastitis, hormone therapy effects, radiation therapy, , and recent biopsy or surgery. False positive examinations can occur in a number of circumstances, including breasts that have recently been subject to invasive procedures and those that contain atypical ductal hyperplasia, hormonally stimulated glandular tissue, fat necrosis, or radial scars. Dictated by: Milo Sullivan M.D. on 11/30/2022 at 15:14 This exam was interpreted at Station ID: [id number]. Electronically Signed By: Milo Sullivan M.D. slc/:11/30/2022 15:27:48 letter sent: Normal Exam ACR BI-RADS Category 2: Benign Finding(s) 3342F
== END ==
PROVIDERS: PCP Family Medicine; Referring Provider Family Medicine; Visit Provider Family Medicine
DX: N60.01 Solitary cyst of right breast (principal); Z12.39 Encounter for other screening for malignant neoplasm of breast; N60.02 Solitary cyst of left breast; Z91.89 Other specified personal risk factors, not elsewhere classified
CPT/HCPCS: 77049; A9579

== ENCOUNTER → 2023-01-12 16:12 | Outpatient (CLI) | payer OTHER, SELFPAY ==
[2023-01-15 12:08] LABS: Fecal Immunochemical Test Negative (Negative)
== END ==
PROVIDERS: PCP Family Medicine; Referring Provider Family Medicine; Visit Provider Family Medicine
DX: Z12.11 Encounter for screening for malignant neoplasm of colon (principal)
CPT/HCPCS: 82274

== ENCOUNTER → 2023-11-28 16:17 | Outpatient (CLI) | payer OTHER, SELFPAY ==
--- NOTE | 2023-11-28 16:19 | DI.MG.S_ITS ---
BILATERAL DIGITAL SCREENING MAMMOGRAM 3D/2D WITH CAD: 11/28/2023 CLINICAL: Routine screening. Family history of breast cancer. Comparison is made to exams dated: 10/25/2022 mammogram, 02/11/2019 mammogram, and 11/30/2022 breast MRI - [facility]. The breasts are extremely dense, which lowers the sensitivity of mammography (category d />75% glandular tissue). Current study was also evaluated with a Computer Aided Detection (CAD) system. No significant masses, calcifications, or other findings are seen in either breast. There has been no significant interval change. IMPRESSION: NEGATIVE There is no mammographic evidence of malignancy. A 1 year screening mammogram is recommended. Based on Tyrer-Cuzick model (a risk assessment model), the patient's lifetime risk is 24.1% and her 10 year risk is 4.9%. If a patient has an elevated risk, a more comprehensive evaluation should be considered and/or a referral to a genetic counselor. The [place] [employer], [employer] [employer], and NCCN Guidelines advise the consideration of Breast MRI as an adjunct to screening mammography in patients whose Lifetime risk to develop breast cancer is 20% or higher. This exam was interpreted at Station ID: [id number]. NOTE: For mammograms, a report in lay terms will be sent to the patient. Approximately 15% of breast malignancies will not be visualized mammographically. In the management of a palpable breast mass, a negative mammogram must not discourage biopsy of a clinically suspicious lesion. Electronically Signed By: Magda Cruz M.D., Ph.D. binu/mark:11/29/2023 09:03:42 letter sent: Normal Exam ACR BI-RADS Category 1: Negative
== END ==
PROVIDERS: PCP Family Medicine; Referring Provider Family Medicine; Visit Provider Family Medicine
DX: Z12.31 Encounter for screening mammogram for malignant neoplasm of breast (principal); Z80.3 Family history of malignant neoplasm of breast; R92.343 Mammographic extreme density, bilateral breasts
CPT/HCPCS: 77063; 77067

== ENCOUNTER → 2024-08-06 19:46 | Outpatient (CLI) | payer OTHER, SELFPAY ==
--- NOTE | 2024-08-06 19:48 | DI.MRI.S_ITS ---
PROCEDURE: MR LUMBAR SPINE WO CON INDICATIONS: Lower back pain TECHNIQUE: Noncontrast sagittal T1 spin echo and T2 fast echo, sagittal STIR, and T2 fast spin echo through the lumbar spine. In cases with scoliosis, additional coronal T2 fast spin echo may be performed. COMPARISON: [facility], MR, MR LUMBAR SPINE WO CON, 12/06/2020, 17:28. FINDINGS: Image quality: Excellent. Alignment and Curvature: There is normal bony alignment. Bone Marrow: Marrow is of normal overall signal. No acute vertebral body compression fractures. Spinal Cord: Conus medullaris terminates at the L1 level. Visualized cord demonstrates normal signal and size. Paraspinous Soft Tissues: No paravertebral masses. T12-L1: Normal appearance. L1-L2: Normal appearance. L2-L3: Normal appearance. L3-L4: Normal appearance. L4-L5: Mild disc bulge as well as bilateral facet arthropathy and ligamentum flavum thickening. No significant spinal stenosis. L5-S1: Postoperative changes of previous right laminotomy. There is a more prominent soft tissue structure in the right lateral recess measuring 8 x 7.7 mm. There is significant mass effect on the descending right S1 root. IMPRESSION: 1. More prominent soft tissue density in the right lateral recess at L5-S1, with significant mass effect on the descending right S1 root. The possibility of recurrent disc extrusion versus progressing postoperative scarring can be better assessed with enhanced MRI. 2. No new disc extrusion or spinal stenosis otherwise. Dictated by: Blaine Jernigan M.D. on 08/06/2024 at 21:55 Approved by: Blaine Jernigan M.D. on 08/06/2024 at 22:02
== END ==
LOC: MRI 19:47
PROVIDERS: Family Provider Family Medicine; PCP Family Medicine; Referring Provider Family Medicine; Visit Provider Family Medicine
DX: M54.41 Lumbago with sciatica, right side (principal); R20.0 Anesthesia of skin; R29.898 Other symptoms and signs involving the musculoskeletal system
CPT/HCPCS: 72148

== ENCOUNTER → 2024-08-21 15:52 | Outpatient (CLI) | payer OTHER, SELFPAY ==
[2024-08-21 17:55] LABS: Add Manual Diff / Slide Review NO; Basophils Absolute Auto 100 /uL (0-100); Basophils Percent Auto 0.6 % (0-2); Eosinophils Absolute Auto 200 /uL (0-450); Eosinophils Percent Auto 1.7 % (2-4); Hematocrit 38.9 % (36-46); Lymphocytes Absolute Auto 2300 /uL (1100-4500); Lymphocytes Percent Auto 26.1 % (25-40); Mean Corpuscular HGB Conc 33.5 % (30-36); Mean Corpuscular Hemoglobin 31.1 PG (26-34); Mean Corpuscular Volume 92.9 fL (80-100); Monocytes Absolute Auto 500 /uL (0-900); Monocytes Percent Auto 5.9 % (3-14); Neutrophils Absolute Auto 5900 /uL (1500-7000); Neutrophils Percent Auto 65.7 % (50-75); Platelet Count 240 X10^3/uL (150-400); Red Blood Cell Count 4.19 X10^6/uL (4.0-5.2); Red Cell Distribution Width 13.3 % (11.6-14.8)
[2024-08-21 18:48] LABS: Estradiol, Total 31.2 pg/mL
== END ==
PROVIDERS: Family Provider Family Medicine; PCP Family Medicine; Referring Provider Family Medicine; Visit Provider Family Medicine
DX: R63.5 Abnormal weight gain (principal)
CPT/HCPCS: 82670; 83001; 84443; 85025